=== PATIENT | male | born 1985 | race Caucasian/White ===

== ENCOUNTER 2017-08-14 16:47 | Inpatient (IN) | payer BC, OTHER ==
[~2017-08-14] VITALS: Ht 180.3 cm; Wt 85.7 kg
[2017-08-14 17:00] VITALS: BP 157/84
--- NOTE | 2017-08-14 17:45 | NUR ---
PRE ADMISSION 31 year old male from [facility], presents alert and oriented x4, noted calm and cooperative, soft speech. bp: 157/84, P: 94, t: 98.0, r: 16 o2 sat: 95%. Patient reports no food or drug allergies. Patient reports he is here to detox off of: heroin, verbalized " i want to get my life back" Patient was educated regarding unit policies with good verbal understanding. Patient denies any history of seizures. Dr. Juarez notified of new admission.
[2017-08-14] MEDS ORDERED: MIRALAX 17 GM POWD.PACK PO PRN (18:00)
[2017-08-14] MEDS ORDERED: MAGNESIUM HYDROXIDE 30 ML LIQUID UDC PO PRN (18:00)
[2017-08-14] MEDS ORDERED: MAG HYDROX/AL HYDROX/SIMETH 30 ML LIQUID UDC PO PRN (18:00)
[2017-08-14] MEDS ORDERED: DICYCLOMINE HCL 20 MG TABLET PO PRN (18:00)
[2017-08-14] MEDS ORDERED: LOPERAMIDE HCL 2 MG CAPSULE PO PRN ×2 (18:00)
[2017-08-14] MEDS ORDERED: ONDANSETRON ODT 4 MG TAB.RAPDIS SL PRN (18:00)
[2017-08-14] MEDS ORDERED: BUPRENORPHINE HCL 2 MG TAB.SUBL SL PRN (18:00)
[2017-08-14] MEDS ORDERED: IBUPROFEN 600 MG TABLET PO PRN (18:00)
[2017-08-14] MEDS ORDERED: ONDANSETRON 4 MG/2 ML VIAL IM PRN (18:00)
[2017-08-14] MEDS ORDERED: LORAZEPAM 1 MG TABLET PO PRN (18:00)
[2017-08-14] MEDS ORDERED: ACETAMINOPHEN 325 MG TABLET PO PRN (18:00)
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
[2017-08-14 18:11] LABS: *AMPHETAMINE, URINE NEGATIVE (NEGATIVE); *BARBITURATE, URINE NEGATIVE (NEGATIVE); *CANNABINOID, URINE POSITIVE (NEGATIVE); *COCCAINE, URINE NEGATIVE (NEGATIVE); *OPIATE, URINE POSITIVE (NEGATIVE); *PHENCYCLIDINE SCREEN,URINE NEGATIVE (NEGATIVE)
[2017-08-14] MEDS ORDERED: CYCL10TA9 PO (18:31)
--- NOTE | 2017-08-14 19:50 | NUR ---
START OF SHIFT Received report from day shift nurse. Pt is in his room watching TV. He is a 31 yo male admitted to [facility] today for opiate dependence. He is A&O x4 and ambulatory. NKA, full code status, and on a regular diet. He has a PMH of Hepatitis C, suicidal ideation 19 months ago, and PTSD. On admission he reported using heroin 1 gram per day and marijuana 1 gram per day. Last used both today. Pt reports "I feel warm". No other s/s of withdrawal at this time. He denies SI/HI. Fall precautions in place. Bed is down with call light in reach.
[2017-08-14 20:00] VITALS: BP 144/80
[2017-08-14 20:26] LABS: BASOPHILS # (AUTO) 0.1 K/uL (0.0-8.0); EOSINOPHILS # (AUTO) 0.4 K/uL (0.0-0.7); EOSINOPHILS % (AUTO) 3.5 % (0.0-7.0); HEMATOCRIT 46.4 % (40-50); HEMOGLOBIN 15.5 G/DL (14.0-18.0); LYMPHOCYTES # (AUTO) 3.5 K/UL (0.8-4.8); LYMPHOCYTES % (AUTO) 33.9 % (20.5-51.5); MEAN CORPUSCULAR HEMOGLOBIN 30.5 UUG (27.0-31.0); MEAN CORPUSCULAR HGB CONC 33 g/dL (32.0-37.0); MEAN CORPUSCULAR VOLUME 91.4 FL (82.0-92.0); MONOCYTES % (AUTO) 9.3 % (0.0-11.0); NEUTROPHILS # (AUTO) 5.3 K/UL (1.8-8.9); NEUTROPHILS % (AUTO) 52.3 % (38.5-71.5); PLATELET COUNT (AUTO) 360 K/UL (150-450); RED BLOOD CELL COUNT(AUTO) 5.07 MIL/UL (4.7-6.1); WHITE BLOOD COUNT (AUTO) 10.3 K/UL (4.0-11.2)
[2017-08-14 20:33] LABS: ALANINE AMINOTRANSFERASE 109 U/L (16-63); ALKALINE PHOSPHATASE 104 U/L (50-136); ASPARTATE AMINOTRANSFERASE 37 U/L (15-37); BILIRUBIN,TOTAL 0.4 mg/dL (0.2-1.0); CARBON DIOXIDE 28 mmol/L (21-32); CHLORIDE 106 mmol/L (98-107); CREATININE 1.3 mg/dL (0.6-1.3); GLUCOSE 84 mg/dL (74-106); MAGNESIUM 2.2 mg/dL (1.8-2.4); TOTAL PROTEIN, SERUM 7.5 g/dL (6.4-8.2); UREA NITROGEN, BLOOD 10 mg/dL (7-18)
[2017-08-14 20:35] LABS: ETHANOL < 3 MG/DL (0-0)
[2017-08-14] MEDS: CLONIDINE HCL 0.1 MG TABLET PO PRN (21:13)
[2017-08-14] MEDS: diphenhydrAMINE 50 MG CAPSULE PO PRN (21:13)
--- NOTE | 2017-08-14 21:14 | NUR ---
PRN Clonidine and Benadryl Pt reports feeling "warm", anxious, restless, and unable to fall asleep. COWS 4. B/P 144/80 and HR 83. PRN Clonidine and Benadryl administered.
--- NOTE | 2017-08-14 22:15 | NUR ---
PRN Clonidine and Benadryl reassessment PRN Clonidine and Benadryl effective. Pt is lying in bed resting with eyes closed. Respirations even and unlabored. Safety measures in place.
[2017-08-15] VITALS (7 sets, daily range): BP systolic 120–142; BP diastolic 74–84
--- NOTE | 2017-08-15 04:00 | NUR ---
0400 COWS deferred COWS ordered Q4HWA. Pt is lying in bed resting with eyes closed. Vital signs obtained. Safety measures in place.
[2017-08-15] MEDS: CLONIDINE HCL 0.1 MG TABLET PO PRN (05:55)
--- NOTE | 2017-08-15 05:56 | NUR ---
PRN Subutex, Clonidine, and Zofran Pt woke up and reports nausea, joint aches, chills, and anxiety. He verbalizes that he feels he is about to vomit. He has visible sweat on the forehead, restless legs, and goose bumps. COWS 15. PRN Subutex, Clonidine, and Zofran IM administered.
--- NOTE | 2017-08-15 06:56 | NUR ---
PRN Subutex, Clonidine, and Zofran reassessment PRN Subutex, Clonidine, and Zofran effective. Pt reports "I feel a lot better". He is lying in bed resting. COWS score reduced to 5.
--- NOTE | 2017-08-15 07:15 | NUR ---
END OF SHIFT Report provided to day shift nurse. Pt is lying in bed resting. He is a 31 yo male admitted to [facility] today for opiate dependence. He is A&O and ambulatory. NKA, full code status, and on a regular diet. He has a PMH of Hepatitis C, suicidal ideation 19 months ago, and PTSD. Upon admission he reported using heroin 1 gram per day and marijuana 1 gram per day. Last used both today. Pt was experiencing s/s of withdrawal PRN Clonidine and Benadryl administered before bed. He woke up with COWS score of 15. PRN Subutex, Clonidine, and Zofran administered. Pt reports symptoms improved. Last COWS 5. Fall precautions in place. Bed is down with call light in reach.
--- NOTE | 2017-08-15 07:16 | NUR ---
Start of Shift Notes: Received patient in his room. Alert and verbally responsive. Oriented x 4. Able to make needs known. Respirations even and unlabored. No SOB noted. Skin warm and dry to touch. Abdomen soft and non-distended. BS (+) in all 4 quadrants. No complains of N/V/D or constipation noted. Bladder non-distended. No dysuria. Voids independently. Ambulatory ad brie with steady gait. Patient is a 31 year old male admitted for opiate dependence who was placed on a 5-day Subutex taper as ordered. Prior to admission, patient was using 1 gram Shamir daily x 1-2 grams of Marijuana daily. Has past medical hx of Hep C, PTSD, and SA 19 months ago. NKA. FULL CODE. On a regular diet. On fall and seizure precautions. Educated patient on his current plan of care for the day and his medication regimen. Encouraged oral fluid intake and encouraged group participation to learn new skills to prevent relapse. Will continue to monitor.
[2017-08-15] MEDS: METHOCARBAMOL 750 MG TABLET PO PRN ×2 (08:43→21:27)
[2017-08-15] MEDS: BUPRENORPHINE HCL 2 MG TAB.SUBL SL SCH ×4 (08:43→21:15)
[2017-08-15] MEDS: MULTIVITAMINS,THERAPEUTIC TABLET PO SCH (08:43)
[2017-08-15] MEDS: HYDROXYZINE PAMOATE 25 MG CAPSULE PO PRN (08:43)
--- NOTE | 2017-08-15 08:43 | NUR ---
Robaxin 750mg/Bentyl 20 mg/Vistaril 25 mg PO given: Patient noted with complain of 6/10 generalized pain related to s/s of opaite withdrawal, abdominal cramps, moderate anxiety, and agitation. COWS 13. Medicated patient with scheduled Subutex 4mg SL, and PRN Robaxin, Bentyl and Vistaril as ordered. Will monitor for effectiveness.
[2017-08-15] MEDS ORDERED: TUBERCULIN,PURIF.PROT.DERIV. 5 TU/0.1 ML TEST ID ONE (09:00)
--- NOTE | 2017-08-15 09:43 | NUR ---
Re-assessment: Per patient, PRN Robaxin, Bentyl and Vistaril were effective in reducing muscle aches, abdominal cramps and anxiety. PL 2/10.
[2017-08-15] MEDS: GABAPENTIN 300 MG CAPSULE PO SCH ×2 (14:09→21:00)
--- NOTE | 2017-08-15 15:38 | NUR ---
Client was prompted by therapist to attend daily group sessions. Client stated that he would attend if was feeling well.
--- NOTE | 2017-08-15 19:37 | NUR ---
End of Shift Notes: Patient started on 5-day Subutex taper as ordered. No adverse reactions noted. VS monitored closely. No significant abnormalities noted. Withdrawal symptoms were closely monitored. Initial COWS 13, patient presented with myalgia, stomach cramps, anxiety, pupil dilation, restlessness, chills and hot flashes. Last COWS 7. Medicated patient with Robaxin 750mg PO, Bentyl 20mg PO and Vistaril 25 mg PO with help after 1 hour. Per patient, Subutex has been effective in reducing patient's withdrawal symptoms. Compliant with care and treatment. Unable to participate in group and activities due to his withdrawal symptoms. ALl needs met and attended. Will continue to monitor closely.
--- NOTE | 2017-08-15 19:50 | NUR ---
START OF SHIFT Received report from day shift nurse. Pt is lying in bed resting. He is a 31 yo male admitted to [facility] on 08/14 for opiate dependence. He is A&O x4 and ambulatory. NKA, full code status, and on a regular diet. He has a PMH of Hepatitis C, suicidal ideation 19 months ago, and PTSD. Upon admission he reported using heroin 1 gram per day and marijuana 1 gram per day. Pt reports anxiety, leg and arm aches, and is observed with restless legs. Pt denies SI/HI. Taper due tonight. Fall precautions in place. Bed is down with call light in reach.
--- NOTE | 2017-08-15 21:28 | NUR ---
PRN Robaxin administration Pt reports leg aches, arm aches, and muscle spasms. PRN Robaxin administered.
[2017-08-15] MEDS ORDERED: LORAZEPAM 1 MG TABLET PO PRN (22:00)
[2017-08-15] MEDS: diphenhydrAMINE 50 MG CAPSULE PO PRN (22:01)
--- NOTE | 2017-08-15 22:02 | NUR ---
PRN Ativan and Benadryl Pt reports feeling anxious, restless, and is unable to keep his legs still. PRN Ativan order extended by Dr. Juarez. PRN Ativan and Benadryl administered.
[2017-08-15] MEDS ORDERED: LORAZEPAM 1 MG TABLET ONE (22:10)
--- NOTE | 2017-08-15 22:28 | NUR ---
PRN Robaxin reassessment PRN Robaxin effective. Pt reports leg and arm aches are relieved. Muscle spasms are less frequent.
[2017-08-16] VITALS (7 sets, daily range): BP systolic 119–157; BP diastolic 66–93
--- NOTE | 2017-08-16 | NUR ---
0000 COWS deferred COWS ordered Q4HWA. Pt is lying in bed resting with eyes closed. Vital signs obtained. Safety measures in place.
--- NOTE | 2017-08-16 04:00 | NUR ---
0400 COWS deferred COWS ordered Q4HWA. Pt is lying in bed resting with eyes closed. Vital signs obtained. Safety measures in place.
[2017-08-16] MEDS: CLONIDINE HCL 0.1 MG TABLET PO PRN (06:05)
--- NOTE | 2017-08-16 06:05 | NUR ---
PRN Clonidine and Zofran Pt woke up and reported hot flashes, anxiety, and nausea. COWS score 10. PRN Clonidine and Zofran administered.
--- NOTE | 2017-08-16 07:05 | NUR ---
PRN Clonidine and Zofran reassessment PRN Clonidine and Zofran effective. Pt is lying in bed resting. He reports nausea is relieved and he feels more relaxed. COWS score 4.
--- NOTE | 2017-08-16 07:06 | NUR ---
END OF SHIFT Report provided to day shift nurse. Pt is lying in bed resting. He is a 31 yo male admitted to [facility] on 08/14 for opiate dependence. He is A&O x4 and ambulatory. NKA, full code status, and on a regular diet. He has a PMH of Hepatitis C, suicidal ideation 19 months ago, and PTSD. Upon admission he reported using heroin 1 gram per day and marijuana 1 gram per day. Pt showered this morning. PRN Ativan, Benadryl, Robaxin last night. PRN Clonidine and Zofran administered this morning. Last COWS 4. He drank 1000mL and slept for 6 hours. Fall precautions in place. Bed is down with call light in reach.
--- NOTE | 2017-08-16 07:30 | NUR ---
START OF SHIFT Pt is a 31 yr old male, AA&OX4. Pt was admitted on 08/14/17 for Opiate dependence and is on 5 day Subutex taper as ordered. medication carlos well. Received report from shift manager nurse. Pt received Ativan PRN, Robaxin PRN, Benadryl PRN, Clonidine PRN and Zofran PRN for s/s of w/d. Medication was effective. Last COWS score was 4 at 0703. Pt denies any anxiety or agitation. Skin is intact, warm and dry to touch. No tremors seen or felt. Pt denies any n/v. Encouraged pt to drink plenty of fluids. Safety precautions observed. Call light is within reach. Will continue to monitor.
[2017-08-16 08:06] LABS: HEPATITIS B SURFACE AG Negative (Negative)
[2017-08-16] MEDS: MULTIVITAMINS,THERAPEUTIC TABLET PO SCH (09:34)
[2017-08-16] MEDS: GABAPENTIN 300 MG CAPSULE PO SCH ×2 (09:34→14:57)
[2017-08-16] MEDS: BUPRENORPHINE HCL 2 MG TAB.SUBL SL SCH ×3 (09:34→21:01)
[2017-08-16] MEDS ORDERED: KETOROLAC TROMETHAMINE 30 MG INJ IM PRN (12:30)
[2017-08-16] MEDS: DICYCLOMINE HCL 20 MG TABLET PO SCH ×2 (14:57→20:59)
--- NOTE | 2017-08-16 19:13 | NUR ---
END OF SHIFT Pt is a 31 yr old male, AA&OX4. Pt was admitted on 08/14/17 for Opiate dependence and is on 5 day Subutex taper as ordered. medication carlos well. Pt has been cooperative with medication regimen and plan of care. Pt was encouraged to attend group but pt refused. Last COWS score was 5 at 1600. Pt is observed with anxiety but is able to cope with anxiety level. Skin is intact, warm and dry to touch. No tremors seen or felt. Pt denies any n/v. Encouraged pt to drink plenty of fluids. Safety precautions observed. Call light is within reach.
--- NOTE | 2017-08-16 19:50 | NUR ---
START OF SHIFT Received report from day shift nurse. Pt is in his room watching TV. He is a 31 yo male admitted to [facility] on 08/14 for opiate dependence. He is A&O x4 and ambulatory. NKA, full code status, and on a regular diet. He has a PMH of Hepatitis C, suicidal ideation 19 months ago, and PTSD. Upon admission he reported using heroin 1 gram per day and marijuana 1 gram per day. 5 day subutex taper started 08/15. Pt reports mild upset stomach and hot flashes. Taper due tonight. Fall precautions in place. Bed is down with call light in reach.
[2017-08-16] MEDS ORDERED: GABAPENTIN 300 MG CAPSULE PO SCH (21:00)
[2017-08-16] MEDS: CLONIDINE HCL 0.1 MG TABLET PO SCH (21:00)
[2017-08-16] MEDS: diphenhydrAMINE 50 MG CAPSULE PO PRN (21:01)
[2017-08-16] MEDS: METHOCARBAMOL 750 MG TABLET PO PRN (21:01)
--- NOTE | 2017-08-16 21:02 | NUR ---
PRN Robaxin and Benadryl Pt reports mild body aches and inability to sleep. PRN Robaxin and Benadryl administered.
[2017-08-17] VITALS: BP 127/66
--- NOTE | 2017-08-17 | NUR ---
0000 COWS deferred 0000 COWS deferred for sleep. Vital signs obtained.
[2017-08-17 04:00] VITALS: BP 134/77
--- NOTE | 2017-08-17 07:05 | NUR ---
START OF SHIFT Received report from day shift nurse. Pt is lying in bed. He is a 31 yo male admitted to [facility] on 08/14 for opiate dependence. He is A&O x4 and ambulatory. NKA, full code status, and on a regular diet. He has a PMH of Hepatitis C, suicidal ideation 19 months ago, and PTSD. Upon admission he reported using heroin 1 gram per day and marijuana 1 gram per day. 5 day Subutex taper started 08/15. PRN Benadryl and Robaxin administered. Last COWS 3. He drank 1180mL and slept for 8 hours. Fall precautions in place. Bed is down with call light in reach.
--- NOTE | 2017-08-17 07:30 | NUR ---
START OF SHIFT Pt is a 31 yr old male, AA&OX4. Pt was admitted on 08/14/17 for Opiate dependence and is on 5 day Subutex taper as ordered. medication carlos well. Received report from c d area supervisor nurse. Pt received Robaxin PRN and Benadryl PRN during the night. Medication was effective. Pt slept for 8 hrs. Last COWS score was 3 at 0400. Pt is c/o mild anxiety but is able to cope with anxiety level. Skin is intact, warm and dry to touch. No tremors seen or felt. Pt denies any n/v. Pt is c/o generalized pain 2/10. Encouraged pt to drink plenty of fluids. Safety precautions observed. Call light is within reach. Will continue to monitor.
[2017-08-17 08:00] VITALS: BP 111/64
[2017-08-17] MEDS: DICYCLOMINE HCL 20 MG TABLET PO SCH ×3 (08:46→20:14)
[2017-08-17] MEDS: GABAPENTIN 300 MG CAPSULE PO SCH ×4 (08:46→20:24)
[2017-08-17] MEDS: MULTIVITAMINS,THERAPEUTIC TABLET PO SCH (08:46)
[2017-08-17] MEDS ORDERED: BUPRENORPHINE HCL 2 MG TAB.SUBL SL SCH (09:00)
[2017-08-17] MEDS: CLONIDINE HCL 0.1 MG TABLET PO SCH ×2 (09:16→20:12)
[2017-08-17 12:00] VITALS: BP 145/70
[2017-08-17] MEDS: BUPRENORPHINE HCL 2 MG TAB.SUBL SL SCH ×2 (14:29→20:14)
[2017-08-17 16:00] VITALS: BP 134/63
--- NOTE | 2017-08-17 19:18 | NUR ---
END OF SHIFT Pt is a 31 yr old male, AA&OX4. Pt was admitted on 08/14/17 for Opiate dependence and is on 5 day Subutex taper as ordered. medication carlos well. Pt has been cooperative with medication regimen and plan of care. Pt was encouraged to attend group but pt refused. Last COWS score was 4 at 1600. Pt is observed with anxiety but is able to cope with anxiety level. Skin is intact, warm and dry to touch. No tremors seen or felt. Pt denies any n/v. Encouraged pt to drink plenty of fluids. Safety precautions observed. Call light is within reach.
--- NOTE | 2017-08-17 19:24 | NUR ---
PRN medication Patient with c/o headache pain 4 out of 10. Patient received Motrin 600 mg PO at 1924 . Effect pending
--- NOTE | 2017-08-17 19:30 | NUR ---
Start of Shift Patient is a 31 yo male admitted to [facility] on 08/14 for opiate dependence. He is on a 5 day Subutex taper started 08/15/17. He has NKA, is a full code, and on a regular diet. He has a PMH of Hepatitis C, suicide attempt 19 months ago, and PTSD. Patient denies current SI or HI. Mood appears stable. Last COWS 4 at 1600. Fall precautions in place. Bed is locked and in lowest position with 2 side rails up for safety, call light in reach. Received report from day shift nurse.
[2017-08-17 20:00] VITALS: BP 146/92
[2017-08-17] MEDS: BACLOFEN 10 MG TABLET PO SCH (20:14)
--- NOTE | 2017-08-17 20:24 | NUR ---
reassessemnt of patient Patient reassessed one hour after Motrin 600 mg PO given for headache, Good effect noted. Patient reports no further pain.
--- NOTE | 2017-08-17 21:00 | NUR ---
Medication refusal Patient refused Neurontin at 2100. States he does not like the way it makes him feel. Charge nurse notified.
[2017-08-17] MEDS: diphenhydrAMINE 50 MG CAPSULE PO PRN (21:01)
--- NOTE | 2017-08-17 21:01 | NUR ---
PRN medication Patient reports difficulty sleeping requested Benadryl. Patient received Benadryl 50 mg PO PRN at 1. Effect pending
--- NOTE | 2017-08-17 22:00 | NUR ---
Reassessment of patient Patient reassessed one hour after PRN Benadryl given for insomnia Good effect noted. Patient resting comfortably in bed eyes closed.
[2017-08-18] VITALS: BP 122/50
--- NOTE | 2017-08-18 | NUR ---
COWS deferred 0000 COWS deferred due to sleep
[2017-08-18 04:00] VITALS: BP 147/69
[2017-08-18] MEDS: HYDROXYZINE PAMOATE 25 MG CAPSULE PO PRN ×2 (05:29→20:05)
[2017-08-18] MEDS: METHOCARBAMOL 750 MG TABLET PO PRN (05:29)
--- NOTE | 2017-08-18 05:29 | NUR ---
PRN medication Patient up since 0400, took shower, and with complaints of feeling uncomfortable, with muscle tightness, and restlessness. Patient received PRN medication: Robaxin 750 mg PO with effect pending Vistaril 25 mg PO with effect pending
--- NOTE | 2017-08-18 06:40 | NUR ---
Reassessment of Patient Patient reassessed one hour after Robaxin 750 mg PO given for muscle pain/tightness, as well as Vistaril 25 mg PO for restlessness. Effectiveness noted.
--- NOTE | 2017-08-18 06:48 | NUR ---
End of Shift Patient is a 31 y.o. male admitted to [facility] on 08/14/17 for opiate detox. He is on a 5 day subutex taper started 08/15/17. He has NKA, is a full code, and on a regular diet. He has a PMH of Hepatitis C, suicide attempt 19 months ago, and PTSD. Patient denies current SI or HI. Mood appears stable. VS at 2000: BP 146/92, P 85, R 18, SPO2 98% on RA, T 97.3. COWS 5. Patient received Motrin 600 mg PO for headache, and Benadryl 50 mg for sleeplessness with good effect. Patient refused Neurontin at 2100 states he does not like the way it makes him feel. Patient VS at 0000 BP 122/50, P 69, R 16, SPO2 99% on RA, T 98.0. COWS deferred for sleep. VS at 0400 BP 147/69, P 71, R 16, T 98.1, SPO2 99% on RA, COWS 2. Patient woke up at 0400, took shower, and now has complaints of feeling uncomfortable, with muscle tightness, and restlessness. PRN: Robaxin 750 mg, and Vistaril 25 mg administered at 0529 with fair effect. slept total of 5 hours. Intake 1128 ml Output 3 voids, 1 BM. Fall precautions in place. Bed is locked and in lowest position with 2 side rails up for safety, call light in reach. report given to day shift nurse.
--- NOTE | 2017-08-18 07:30 | NUR ---
START OF SHIFT Pt is a 31 yr old male, AA&OX4. Pt was admitted on 08/14/17 for Opiate dependence and is on 5 day Subutex taper as ordered. medication carlos well. Received report from night coordinator nurse. Pt received Robaxin PRN, Vistaril PRN and Motrin PRN during the night for s/s of w/d. Medication was effective. Pt slept for 5 hrs. Last COWS score was 2 at 0400. Pt is c/o mild anxiety at this time but is able to cope with anxiety level. Skin is intact, warm and dry to touch. No tremors seen or felt. Pt denies any n/v. Pt denies any pain. Encouraged pt to drink plenty of fluids. Safety precautions observed. Call light is within reach. Will continue to monitor.
[2017-08-18 08:00] VITALS: BP 105/63
[2017-08-18] MEDS ORDERED: BUPRENORPHINE HCL 2 MG TAB.SUBL SL SCH (09:00)
[2017-08-18] MEDS: MULTIVITAMINS,THERAPEUTIC TABLET PO SCH (10:00)
[2017-08-18] MEDS: CLONIDINE HCL 0.1 MG TABLET PO SCH ×3 (10:00→20:05)
[2017-08-18] MEDS: DICYCLOMINE HCL 20 MG TABLET PO SCH ×3 (10:00→20:06)
[2017-08-18] MEDS: GABAPENTIN 300 MG CAPSULE PO SCH ×3 (10:00→20:06)
[2017-08-18] MEDS: BACLOFEN 10 MG TABLET PO SCH ×3 (10:00→20:05)
--- NOTE | 2017-08-18 10:00 | NUR ---
MEDICATION REFUSED Pt refused to take all medications scheduled at 0900 including Subutex 2mg SL. Pt was educated on the importance of medication regimen. Pt was able to verbalize understanding but continues to refuse. Dr. Juarez was made aware with NNO.
[2017-08-18 12:00] VITALS: BP 146/74
--- NOTE | 2017-08-18 14:18 | NUR ---
MEDICATION REFUSED Pt refused to take all medications scheduled at 1500. Pt was educated on the importance of medication regimen. Pt was able to verbalize understanding but continues to refuse. Dr. Juarez was made aware with NNO.
[2017-08-18 16:00] VITALS: BP 149/76
--- NOTE | 2017-08-18 19:07 | NUR ---
END OF SHIFT Pt is a 31 yr old male, AA&Ox4. Pt was admitted on 08/14/17 for Opiate dependence and was on Subutex taper. Pt refused to take Subutex and all medication during the day. MD was made aware with new order to discontinue Subutex taper. Pt is to be discharged tomorrow on 08/19/17. Last COWS score was 2 at 1600. Pt is observed with anxiety but is able to cope with anxiety level. Skin is intact, warm and dry to touch. No tremors seen or felt. Pt denies any n/v. Encouraged pt to drink plenty of fluids. Safety precautions observed. Call light is within reach.
[2017-08-18 20:00] VITALS: BP 146/74
--- NOTE | 2017-08-18 20:00 | NUR ---
START OF SHIFT NOTE RECEIVED REPORT FROM DAY SHIFT NURSE. PATIENT IS A 31 YEAR OLD MALE ADMITTED FOR OPIATE DEPENDENCE. PATIENT IS ON 4TH DAY OF HIS 5 DAY SUBUTEX TAPER. PATIENT REPORTS PMH OF HEP C +, PTSD, SUICIDE ATTEMPT 19 MONTHS AGO. UPON ADMISSION, PATIENT IS USING HEROIN (SMOKED) 1 GRAM DAILY FOR 10 MONTHS AND MARIJUANA (SMOKED) 1-2 GRAM DAILY FOR 21 YEARS. SKIN INTACT. PER DAY SHIFT NURSE, PATIENT HAS BEEN REFUSING HIS SUBUTEX, DR. VANEGAS DISCONTINUE TAPER AND IS MEDICALLY CLEARED TO BE DISCHARGE TOMORROW.RECEIVED PATIENT IN HIS ROOM, WATCHING TV. PATIENT STATES HES ANXIOUS BUT FEELS GOOD. NO N/V. APPETITE IS GOOD AND DRINKING FLUIDS WELL. ON FALL PRECAUTION. SAFETY MEASURES IN PLACE. CALL LIGHT IN REACH. WILL CONTINUE TO MONITOR
[2017-08-18] MEDS: diphenhydrAMINE 50 MG CAPSULE PO PRN (20:05)
--- NOTE | 2017-08-18 21:00 | NUR ---
REFUSED MEDS PATIENT REFUSED BENTYL AND NEURONTIN, EXPLAINED RISKS/BENEFITS. WILL CONTINUE TO MONITOR
--- NOTE | 2017-08-18 22:05 | NUR ---
PRN VISTARIL AND BENADRYL ADMINISTRATION PATIENT REPORTS ANXIETY AND REQUESTS FOR SLEEP AID. PRN BENADRYL AND VISTARIL GIVEN. WILL CONTINUE TO MONITOR.
--- NOTE | 2017-08-18 23:30 | NUR ---
VISTARIL/BENADRYL RE-ASSESSMENT PATIENT ASLEEP AT THIS TIME. RESPIRATION EVEN AND UNLABORED. SAFETY MEASURES IN PLACE. CALL LIGHT IN REACH. WILL CONTINUE TO MONITOR
--- NOTE | 2017-08-19 | NUR ---
COWS DEFERRED PATIENT SLEEPING. REFUSED VS COWS DEFERRED. RESPIRATION EVEN AND UNLABORED. SAFETY MEASURES IN PLACE. CALL LIGHT IN REACH. WILL CONTINUE TO MONITOR
--- NOTE | 2017-08-19 04:00 | NUR ---
COWS DEFERRED PATIENT SLEEPING. REFUSED VS COWS DEFERRED. RESPIRATION EVEN AND UNLABORED. SAFETY MEASURES IN PLACE. CALL LIGHT IN REACH. WILL CONTINUE TO MONITOR
--- NOTE | 2017-08-19 07:26 | NUR ---
END OF SHIFT NOTE PATIENT IS MEDICALLY CLEARED TO BE DISCHARGE TODAY. PATIENT SLEPT 5 HOURS. FLUID INTAKE 1,478 ML. VOIDED X 2 AND NO BM, PATIENT REFUSED BENTYL AND NEURONTIN. EXPLAINED RISKS/BENEFITS. PATIENT WAS GIVEN PRN BENADRYL AND VISTARIL, EFFECTIVE. ON FALL PRECAUTION. WILL CONTINUE TO MONITOR. NO S/I/HI DURING SHIFT. SAFETY MEASURES IN PLACE. CALL LIGHT IN REACH. WILL CONTINUE TO MONITOR.
--- NOTE | 2017-08-19 07:30 | NUR ---
Start of shift note: received pt from night stocker nurse. pt is in stable condition no s/s of pain or discomfort. pt is set to discharge today. [facility] Opiate/marijuana withdrawal/dependence. pt tolerated subutex doses well without A/R noted. pt's last cows 1 and slept for 5 hours. pt is set to discharge today. will assist pt in discharging.
[2017-08-19] MEDS: MULTIVITAMINS,THERAPEUTIC TABLET PO SCH (08:20)
[2017-08-19] MEDS: DICYCLOMINE HCL 20 MG TABLET PO SCH (08:20)
[2017-08-19] MEDS: CLONIDINE HCL 0.1 MG TABLET PO SCH (08:20)
[2017-08-19] MEDS: GABAPENTIN 300 MG CAPSULE PO SCH (08:20)
[2017-08-19] MEDS: BACLOFEN 10 MG TABLET PO SCH (08:20)
[2017-08-19 09:00] VITALS: BP 160/83
[2017-08-19] MEDS ORDERED: BUPRENORPHINE HCL 2 MG TAB.SUBL SL SCH (09:00)
--- NOTE | 2017-08-19 09:44 | NUR ---
discharge note: pt left the unit in stable condition, pt refused all scheduled medications, explained risk and benefits x3. pt teaching Administered and pt verbalized understanding. pt's V/S WNL. pt's personal belongings were returned, pt will be picked up by and transported home via own private car.
== END 2017-08-19 09:44 | disposition home or self-care (01) | DRG 895 ==
LOC: SRC 16:47
PROVIDERS: ADMIT Internal Medicine; ATTEND Internal Medicine
PROC: HZ2ZZZZ Detoxification Services for Substance Abuse Treatment (ICD-10-PCS; principal; 2017-08-14)
PROC: HZ51ZZZ Individual Psychotherapy for Substance Abuse Treatment, Behavioral (ICD-10-PCS; 2017-08-16)
DX: F11.23 Opioid dependence with withdrawal (principal); F33.2 Major depressive disorder, recurrent severe without psychotic features; I15.9 Secondary hypertension, unspecified; Z91.5 Personal history of self-harm; Z83.3 Family history of diabetes mellitus; Z81.1 Family history of alcohol abuse and dependence; Z81.3 Family history of other psychoactive substance abuse and dependence; F43.10 Post-traumatic stress disorder, unspecified; F12.10 Cannabis abuse, uncomplicated; B18.2 Chronic viral hepatitis C
CPT/HCPCS: 36415; 80307; 80349; 80361; 83735; 85025; 86580; 86592; 86705; 86803; 87340; 87806; A4663; G0480; J2405; Q0162; Q0163

== ENCOUNTER 2017-10-25 19:57 | Inpatient (IN) | payer BC, OTHER ==
[~2017-10-25] VITALS: Ht 180.3 cm; Wt 77.1 kg
[2017-10-25] MEDS ORDERED: MAGNESIUM HYDROXIDE 30 ML LIQUID UDC PO PRN (20:15)
[2017-10-25] MEDS ORDERED: MAG HYDROX/AL HYDROX/SIMETH 30 ML LIQUID UDC PO PRN (20:15)
[2017-10-25] MEDS ORDERED: ONDANSETRON 4 MG/2 ML VIAL IM PRN (20:15)
[2017-10-25] MEDS ORDERED: BUPRENORPHINE HCL 2 MG TAB.SUBL SL PRN (20:15)
[2017-10-25] MEDS ORDERED: LOPERAMIDE HCL 2 MG CAPSULE PO PRN ×2 (20:15)
[2017-10-25] MEDS ORDERED: ONDANSETRON ODT 4 MG TAB.RAPDIS SL PRN (20:15)
[2017-10-25] MEDS ORDERED: IBUPROFEN 600 MG TABLET PO PRN (20:15)
[2017-10-25] MEDS ORDERED: DICYCLOMINE HCL 20 MG TABLET PO PRN (20:15)
[2017-10-25] MEDS ORDERED: DOCUSATE SODIUM 250 MG CAPSULE PO PRN (20:15)
[2017-10-25] MEDS ORDERED: ACETAMINOPHEN 325 MG TABLET PO PRN (20:15)
[2017-10-25] MEDS ORDERED: MIRALAX 17 GM POWD.PACK PO PRN (20:15)
[2017-10-25 20:49] LABS: BASOPHILS # (AUTO) 0.1 K/uL (0.0-8.0); BASOPHILS % (AUTO) 0.7 % (0.0-2.0); EOSINOPHILS % (AUTO) 0.4 % (0.0-7.0); HEMATOCRIT 50.3 % (36.7-47.1); LYMPHOCYTES # (AUTO) 2.4 K/uL (20.0-40.0); LYMPHOCYTES % (AUTO) 24.9 % (20.5-51.5); MEAN CORPUSCULAR HEMOGLOBIN 31.3 uug (23.8-33.4); MEAN CORPUSCULAR HGB CONC 34 g/dL (32.5-36.3); MEAN CORPUSCULAR VOLUME 92.3 fL (73.0-96.2); MONOCYTES # (AUTO) 0.7 K/uL (2.0-10.0); MONOCYTES % (AUTO) 6.9 % (0.0-11.0); NEUTROPHILS # (AUTO) 6.5 K/uL (1.8-8.9); NEUTROPHILS % (AUTO) 67.1 % (38.5-71.5); PLATELET COUNT (AUTO) 279 K/uL (152-348); RED BLOOD CELL COUNT(AUTO) 5.45 MIL/uL (4.06-5.63); WHITE BLOOD COUNT (AUTO) 9.7 K/uL (3.6-10.2)
[2017-10-25 20:58] VITALS: BP 124/87
[2017-10-25 21:00] LABS: ALANINE AMINOTRANSFERASE 85 U/L (16-63); ALKALINE PHOSPHATASE 105 U/L (50-136); ASPARTATE AMINOTRANSFERASE 29 U/L (15-37); BILIRUBIN,TOTAL 0.6 mg/dL (0.2-1.0); CARBON DIOXIDE 24 mmol/L (21-32); CHLORIDE 105 mmol/L (98-107); CREATININE 1.6 mg/dL (0.6-1.3); GLUCOSE 124 mg/dL (74-106); MAGNESIUM 2.1 mg/dL (1.8-2.4); POTASSIUM 3.8 mmol/L (3.5-5.1); TOTAL PROTEIN, SERUM 8.1 g/dL (6.4-8.2); UREA NITROGEN, BLOOD 11 mg/dL (7-18)
--- NOTE | 2017-10-25 21:00 | NUR ---
Pre admission note Patient seen in intake office. Pt appears moderately intoxicated upon admission but in stable condition. V/S WNL. Policies on medication disposal explained to and understood by patient. No s/s of distress noted at this time. Respirations even and unlabored. Will continue to monitor. Will admit to unit.
[2017-10-25 21:02] LABS: ETHANOL < 3 MG/DL (0-0)
[2017-10-25 21:04] LABS: *AMPHETAMINE, URINE NEGATIVE (NEGATIVE); *BARBITURATE, URINE NEGATIVE (NEGATIVE); *CANNABINOID, URINE POSITIVE (NEGATIVE); *COCCAINE, URINE NEGATIVE (NEGATIVE); *OPIATE, URINE POSITIVE (NEGATIVE); *PHENCYCLIDINE SCREEN,URINE NEGATIVE (NEGATIVE)
--- NOTE | 2017-10-25 21:10 | NUR ---
Admission note Pt is a 32 yo male, A+Ox4, presenting to [facility] for Opiate dependence. Pt has NKA, is on Full code status, and on Regular diet. Pt is 5'11" in height and 170 LBS in weight. Pt has medical HX of S/I with attempt in 12/2015, Facial reconstruction, tongue SX, Trach/GT, and Hep C+. Pt has family HX of Carpal tunnel- Mother, Heart condition- Father, and Substance and alcohol abuse- Mother, Father, 2 sisters. Pt has a primary care provider named Freddy Mustafa. Pt has been using Heroin IV for 18 years (2 months currently), has reached a level of 1.5gm-3gm daily, and last dose was 0.5gm on 10-25-17 @1700. Pt has been taking [place] 5/325 PO for 2 years (2 months currently), has reached a level of 2 tabs when Heroin not available, and last dose was 2 tabs on 10-22-17. Pt has used Suboxone 1 time only on 10-25-17 @0900. Pt is not taking any home medications. Pt has HX of previous Detox/Rehab @ [facility] for 5 days in 07/2017 and continued sobriety for a total of 15 days. This was the patients last time sober. Pt has quit smoking cigarettes about 3-4 years ago. Pt appears moderately intoxicated upon admission but in stable condition. V/S WNL. No s/s of distress noted at this time. Respirations even and unlabored. Will continue to monitor.
[2017-10-25] MEDS: CLONIDINE HCL 0.1 MG TABLET PO PRN (22:52)
[2017-10-25] MEDS: diphenhydrAMINE 50 MG CAPSULE PO PRN (22:52)
--- NOTE | 2017-10-25 22:52 | NUR ---
PRN Clonidine and Benadryl Pt c/o Anxiety and inability to sleep and requested for PRN Benadryl and Clonidine. medication Addendum: 10/26/17 at 0128 by GENNARO PRECIADO LVN ... medications given and tolerated well. Will reassess within 1 HR. Will continue to monitor.
[2017-10-25] MEDS ORDERED: diphenhydrAMINE 50 MG CAPSULE ONE (23:07)
[2017-10-25] MEDS ORDERED: CLONIDINE HCL 0.1 MG TABLET ONE (23:07)
--- NOTE | 2017-10-25 23:50 | NUR ---
PRN Clonidine and Benadryl Reassessment Medications effective. Pt is resting well in bed. No s/s of ASE/distress noted at this time. Respirations even and unlabored. Will continue to monitor.
[2017-10-26 00:10] VITALS: BP 127/73
--- NOTE | 2017-10-26 03:36 | NUR ---
PRN Subutex 4mg Pt c/o opiate withdrawal and noted with COWS: 13. PRN Subutex given and tolerated well. Will reassess within 30 minutes. Will continue to monitor.
[2017-10-26] MEDS ORDERED: BUPRENORPHINE HCL 2 MG TAB.SUBL SL ONE (03:48)
--- NOTE | 2017-10-26 03:48 | NUR ---
PRN Vistaril Pt c/o anxiety and requested for PRN Vistaril. Medication given and tolerated well. Will reassess within 1 HR. Will continue to monitor
[2017-10-26] MEDS: HYDROXYZINE PAMOATE 25 MG CAPSULE PO PRN (03:49)
[2017-10-26] MEDS ORDERED: HYDROXYZINE PAMOATE 25 MG CAPSULE ONE (04:05)
[2017-10-26 04:06] VITALS: BP 122/77
--- NOTE | 2017-10-26 04:06 | NUR ---
PRN Subutex 4mg and Vistaril Reassessment Medications effective. Pt is resting well in bed with COWS: 6. No s/s of ASE/distress noted at this time. Respirations even and unlabored. Will continue to monitor.
[2017-10-26] MEDS: CLONIDINE HCL 0.1 MG TABLET PO PRN ×3 (06:51→20:50)
--- NOTE | 2017-10-26 06:58 | NUR ---
PRN Clonidine Pt c/o anxiety and requested for PRN Clonidine. Medication given and tolerated well. Will reassess within 1 HR. Will continue to monitor.
--- NOTE | 2017-10-26 07:00 | NUR ---
End of shift note Pt is a 32 yo male, A+Ox4, presenting to [facility] for Opiate dependence. Pt has NKA, is on Full code status, and on Regular diet. Pt has HX of S/I with attempt in 12/2015, Facial reconstruction, tongue SX, Trach/GT, and Hep C+. Pt is on fall precautions. Pt is on 5 day Subutex taper to start today. Pt was given PRN Clonidine and Benadryl @2252 and PRN Subutex and Vistaril @0336 and PRN Clonidine @0658. Pt slept for a total of 5 HRS. Last COWS: 6 @0400. No s/s of distress noted at this time. Respirations even and unlabored. Will endorse today shift nurse.
[2017-10-26] MEDS ORDERED: CLONIDINE HCL 0.1 MG TABLET ONE (07:04)
--- NOTE | 2017-10-26 07:55 | NUR ---
START OF SHIFT: RECEIVED PT A/O X 4. HE IS FIDGETY AND RESTLESS. HE PRESENTS WITH ANXIOUS MOOD AND CONGRUENT AFFECT. HE REPORTS ANXIETY,SEVERE BODY ACHES,SWEATS,CHILLS AND STATES HE DID NOT SLEEP WELL LAST NIGHT. PRN ROBAXIN GIVEN WITH SCHEDULED SUBUTEX FOR BODY ACHES. ENCOURAGED INCREASED FLUIDS AND REST TODAY. PPD PLANTED TO LFA. WILL CONTINUE TO MONITOR AND MANAGE S/S OF W/D.
[2017-10-26 08:00] VITALS: BP 116/78
[2017-10-26] MEDS: METHOCARBAMOL 750 MG TABLET PO PRN (08:30)
[2017-10-26] MEDS ORDERED: TUBERCULIN,PURIF.PROT.DERIV. 5 TU/0.1 ML TEST ID ONE (09:00)
[2017-10-26] MEDS ORDERED: BUPRENORPHINE HCL 2 MG TAB.SUBL SL SCH (09:00)
[2017-10-26] MEDS: LORAZEPAM 1 MG TABLET PO PRN ×2 (09:51→17:35)
--- NOTE | 2017-10-26 09:55 | NUR ---
PRN ATIVAN 2MG PO GIVEN FOR REPORTED ANXIETY. PT IS AGITATED AND FIDGETY. WILL MONITOR EFFECTIVENESS OF PRN MED. PRN ROBAXIN EFFECTIVE FOR MUSCLE ACHES.WILL CONTINUE TO MONITOR AND OFFER SUPPORT.
--- NOTE | 2017-10-26 10:55 | NUR ---
PRN ATIVAN EFFECTIVE. PT STATES HE FEELS BETTER.HE IS LESS ANXIOUS AND AGITATED.
[2017-10-26] MEDS ORDERED: KETOROLAC TROMETHAMINE 30 MG INJ IM PRN (11:30)
[2017-10-26 12:00] VITALS: BP 105/66
[2017-10-26] MEDS: BUPRENORPHINE HCL 2 MG TAB.SUBL SL SCH ×3 (12:25→20:50)
[2017-10-26 16:00] VITALS: BP 112/75
--- NOTE | 2017-10-26 16:16 | NUR ---
Therapist prompted client about group times. Client stated he wants to rest today.
--- NOTE | 2017-10-26 17:44 | NUR ---
PT BECAME EXTREMELY ANXIOUS AND AGITATED. PRN ATIVAN PO GIVEN TO MANAGE ANXIETY AND AGITATION. WILL MONITOR EFFECTIVENESS.
--- NOTE | 2017-10-26 18:45 | NUR ---
PT STATES ATIVAN WAS EFFECTIVE AND HE FEELS MUCH BETTER. HE STATES HE FEELS SAD BUT DENIES S/I AND H/I.OFFERED SUPPORT.WILL CONTINUE TO MONITOR
--- NOTE | 2017-10-26 18:54 | NUR ---
END OF SHIFT: PT STARTED SUBUTEX TAPER THIS AM. HE REPORTED SWEATS,CHILLS,ANXIETY AND WAS VERY FIDGETY. SUBUTEX WAS ONLY MILDLY EFFECTIVE.HE BECAME AGITATED AND RESTLESS. ATIVAN PRN PO GIVEN X 2 AND EFFECTIVE TO ASSIST IN MANAGING ANXIETY AND AGITATION.PPD PLANTED TO LFA. HE WAS COMPLIANT WITH REST AND INCREASED FLUIDS TODAY. HE EXPRESSED FEELING SAD BUT DENIES S/I AND H/I. WILL ENDORSE TO SOLDER TECHNICIAN NURSE TO FOLLOW UP WITH PSYCH. . WILL PASS SHIFT REPORT TO ONCOMING NIGHT NURSE.
--- NOTE | 2017-10-26 19:15 | NUR ---
Start of shift note Pt is a 32 yo male, A+Ox4, presenting to [facility] for Opiate dependence. Pt has NKA, is on Full code status, and on Regular diet. Pt has HX of S/I with attempt in 12/2015, Facial reconstruction, tongue SX, Trach/GT, and Hep C+. Pt is on fall precautions. Pt is on 5 day Subutex taper, tolerated well. No s/s of distress noted at this time. Respirations even and unlabored. Will continue to monitor.
[2017-10-26 20:10] VITALS: BP 127/83
[2017-10-26] MEDS: diphenhydrAMINE 50 MG CAPSULE PO PRN (20:50)
--- NOTE | 2017-10-26 20:50 | NUR ---
PRN Clonidine and Benadryl Pt c/o Anxiety and inability to sleep and requested for PRN Benadryl and Clonidine. Medications given and tolerated well. Will reassess within 1 HR. Will continue to monitor.
[2017-10-27 00:18] VITALS: BP 124/73
[2017-10-27 04:15] VITALS: BP 133/87
[2017-10-27] MEDS: LORAZEPAM 1 MG TABLET PO PRN ×2 (04:16→08:33)
--- NOTE | 2017-10-27 04:20 | NUR ---
PRN Ativan 2mg Pt c/o anxiety/agitation and requested for PRN Ativan 2mg. Medication given and tolerated well. Will reassess within 1 HR. Will continue to monitor.
--- NOTE | 2017-10-27 05:15 | NUR ---
PRN Ativan 2mg Reassessment Medication effective. Pt is resting well in bed. No s/s of distress noted at this time. Respirations even and unlabored. Will continue to monitor.
--- NOTE | 2017-10-27 07:00 | NUR ---
End of shift note Pt is a 32 yo male, A+Ox4, presenting to [facility] for Opiate dependence. Pt has NKA, is on Full code status, and on Regular diet. Pt has HX of S/I with attempt in 12/2015, Facial reconstruction, tongue SX, Trach/GT, and Hep C+. Pt is on fall precautions. Pt is on 5 day Subutex taper to start today. Pt was given PRN Clonidine and Benadryl @2049 and PRN Ativan 2mg @0. Pt slept for a total of 9 HRS. Last COWS: 7 @0400. No s/s of distress noted at this time. Respirations even and unlabored. Will endorse today shift nurse.
--- NOTE | 2017-10-27 07:48 | NUR ---
START OF SHIFT RECEIVED PT A/O X4, RESPIRATIONS EVEN AND UNLABORED. PT REPORTS HAVING HOT FLASHES, GENERALIZED BODY ACHES, AND ANXIETY. DENIES NAUSEA AND CHILLS. ENCOURAGED PT TO CONSUME MORE FLUIDS TO FACILITATE IN DETOX PROCESS. SIDE RAILS UP X2, BED IN LOWEST POSITION. CALL LIGHT WITHIN REACH. WILL CONTINUE TO MONITOR AND PROVIDE SUPPORT. Addendum: 10/27/17 at 0758 by TYLER TURNER RN FALL PRECAUTIONS TAKEN.
[2017-10-27 08:00] VITALS: BP 118/68
[2017-10-27] MEDS: BUPRENORPHINE HCL 2 MG TAB.SUBL SL SCH ×3 (08:27→20:23)
[2017-10-27] MEDS: CLONIDINE HCL 0.1 MG TABLET PO PRN ×2 (08:27→14:48)
[2017-10-27] MEDS: METHOCARBAMOL 750 MG TABLET PO PRN (08:32)
--- NOTE | 2017-10-27 08:35 | NUR ---
PRN PT C/O OF BODY ACHES, HOT FLASHES, INCREASED S/S OF W/D. PT ALSO REPORTED INCREASED ANXIETY SINCE WAKING UP. ATIVAN 2 MG PO PRN, ROBAXIN 750 MG PO PRN, AND CLONIDINE 0.1 MG PO PRN WAS GIVEN. WILL CONTINUE TO MONITOR AND PROVIDE SUPPORT.
[2017-10-27] MEDS ORDERED: BUPRENORPHINE HCL 2 MG TAB.SUBL SL SCH ×2 (09:00→15:00)
--- NOTE | 2017-10-27 09:35 | NUR ---
REASSESSMENT PT REPORTED MEDICATIONS WERE EFFECTIVE IN REDUCING S/S OF W/D, INCLUDING BODY ACHES, AND HOT FLASHES. ALL SAFETY PRECAUTIONS TAKEN. WILL CONTINUE TO MONITOR AND PROVIDE SUPPORT.
[2017-10-27] MEDS ORDERED: LORAZEPAM 1 MG TABLET PO PRN (11:00)
[2017-10-27] MEDS ORDERED: LORAZEPAM 1 MG TABLET PO ONE (11:00)
[2017-10-27 12:00] VITALS: BP 108/72
[2017-10-27] MEDS: ESCITALOPRAM OXALATE 10 MG TABLET PO SCH (12:50)
[2017-10-27] MEDS: BACLOFEN 10 MG TABLET PO SCH ×2 (14:41→20:23)
--- NOTE | 2017-10-27 14:57 | NUR ---
PRN PT C/O OF INCREASED S/S OF W/D. ADMINISTERED CLONIDINE 0.1 MG PO PRN. ALL SAFETY MEASURES IN PLACE. WILL CONTINUE TO MONITOR AND PROVIDE SUPPORT.
[2017-10-27 16:00] VITALS: BP 118/72
--- NOTE | 2017-10-27 17:54 | NUR ---
REASSESSMENT PT REPORTED S/S OF W/D DECREASED WITH CLONIDINE AND MED WAS EFFECTIVE. ALL SAFETY MEASURES IN PLACE. WILL CONTINUE TO MONITOR AND PROVIDE SUPPORT.
--- NOTE | 2017-10-27 19:30 | NUR ---
END OF SHIFT PT IS A/O X4, RESPIRATIONS EVEN AND UNLABORED. PT REPORTED HAVING HOT FLASHES, GENERALIZED BODY ACHES, AND HIGH ANXIETY. DENIES NAUSEA AND SOB. PT APPEARED TO BE REALLY DEPRESSED, DR. BREWER NOTIFIED; LEXAPRO ORDERED AND GIVEN. ATIVAN X1 WAS ORDERED AND GIVEN DURING SHIFT; PT VERBALIZED THE MED HELPED SIGNIFICANTLY WITH HIS S/S OF W/D. LAST COWS 7. PT IS AT ON SUBUTEX TAPER. ENCOURAGED PT TO CONSUME MORE FLUIDS TO FACILITATE IN DETOX PROCESS. SIDE RAILS UP X2, BED IN LOWEST POSITION. CALL LIGHT WITHIN REACH. ALL SAFETY PRECAUTIONS TAKEN. WILL GIVE ALL PERTINENT DATA AND ENDORSEMENT TO LOG BRANDER.
[2017-10-27 20:00] VITALS: BP 124/80
--- NOTE | 2017-10-27 20:00 | NUR ---
Start of Shift Pt is a 32 year old male admitted for Opiate dependence, placed on 5 day Subutex taper. Pt reported use of Heroin IV 1.5g 3g/daily, [place] 5/325 and Suboxone use 1 time on 10/25/2017. PMH: SI with attempt 12/2015, facial reconstruction, tongue sx, trach/GI and Hep C. NKA, regular diet, fall precautions and full code. Upon assessment, pt presents with a depressed mood, reports feeling anxious at the same time, chills and hot/cold flushes, skin is flushed with body aches, tremors visible, respiration even/unlabored, denies SOB/chest pain, denies n/v/d, medications due. Safety measures in place, call light within reach, side rails up x2, bed locked and in low position, will continue to monitor.
[2017-10-27] MEDS: CLONIDINE HCL 0.1 MG TABLET PO SCH (20:23)
[2017-10-27] MEDS: diphenhydrAMINE 50 MG CAPSULE PO PRN (22:57)
--- NOTE | 2017-10-27 22:57 | NUR ---
PRN Administration Pt requests sleep aid. Benadryl 50mg PRN administered. Safety measures in place, will continue to monitor.
--- NOTE | 2017-10-27 23:57 | NUR ---
PRN Reassessment Upon reassessment, pt is resting eyes closed, with respirations even/unlabored. Safety measures in place, will continue to monitor.
[2017-10-28] VITALS: BP 137/83
--- NOTE | 2017-10-28 | NUR ---
COWS deferred d/t pt sleeping, to assess while pt is awake as ordered. BP 137/83, pulse 86, resp 17, Spo2 97% room air, temp 98.2, no pain Safety measures in place, will continue to monitor.
[2017-10-28 02:10] LABS: HEPATITIS B SURFACE AG Negative (Negative)
[2017-10-28 04:00] VITALS: BP 132/75
--- NOTE | 2017-10-28 04:00 | NUR ---
COWS deferred d/t pt sleeping, to assess while pt is awake as ordered. BP 132/75, pulse 82, resp 17, Spo2 98% room air, temp 98.1, no pain Safety measures in place, will continue to monitor.
--- NOTE | 2017-10-28 07:08 | NUR ---
End of Shift Pt is a 32 year old male admitted for Opiate dependence, placed on 5 day Subutex taper. Pt reported use of Heroin IV 1.5g 3g/daily, [place] 5/325 and Suboxone use 1 time on 10/25/2017. PMH: SI with attempt 12/2015, facial reconstruction, tongue sx, trach/GI and Hep C. NKA, regular diet, fall precautions and full code. During shift, pt presented with a depressed mood, reported feeling anxious at the same time, chills and hot/cold flushes, skin is flushed with body aches, tremors visible scheduled taper medications administered, COWS 9. Benadryl 50mg PRN administered for sleep. Pt slept for 7 hours, intake of 1478 ml PO, voids x3 and stool x0. Safety measures in place, call light within reach, side rails up x2, bed locked and in low position, Endorsed to day shift nurse.
--- NOTE | 2017-10-28 07:35 | NUR ---
START OF SHIFT RECEIVED PT A/O X4, RESPIRATIONS EVEN AND UNLABORED. PT REPORTS HAVING HOT FLASHES, ANXIETY AND NAUSEA. DENIES SOB. PT STATED, "I FEEL BETTER THIS MORNING COMPARED TO YESTERDAY." ENCOURAGED PT TO CONSUME MORE FLUIDS TO FACILITATE IN DETOX PROCESS. SIDE RAILS UP X2, BED IN LOWEST POSITION. CALL LIGHT WITHIN REACH. ALL SAFETY PRECAUTIONS TAKEN. WILL CONTINUE TO MONITOR AND PROVIDE SUPPORT.
[2017-10-28 08:00] VITALS: BP 118/79
[2017-10-28] MEDS: ESCITALOPRAM OXALATE 10 MG TABLET PO SCH (08:41)
[2017-10-28] MEDS: BACLOFEN 10 MG TABLET PO SCH ×3 (08:41→20:23)
--- NOTE | 2017-10-28 08:41 | NUR ---
PRN PT C/O NAUSEA AND ZOFRAN 4 MG SL PRN WAS GIVEN. WILL CONTINUE TO MONITOR FOR EFFECTIVENESS.
[2017-10-28] MEDS: CLONIDINE HCL 0.1 MG TABLET PO SCH ×3 (08:42→20:23)
[2017-10-28] MEDS ORDERED: BUPRENORPHINE HCL 2 MG TAB.SUBL SL SCH ×2 (09:00)
[2017-10-28 09:08] LABS: BILIRUBIN,DIRECT 0.2 mg/dL (0.0-0.2); BILIRUBIN,TOTAL 0.8 mg/dL (0.2-1.0); CREATININE 1.6 mg/dL (0.6-1.3); POTASSIUM 4.2 mmol/L (3.5-5.1)
--- NOTE | 2017-10-28 09:41 | NUR ---
REASSESSMENT PT REPORTED ZOFRAN WAS EFFECTIVE FOR HIS NAUSEA. WILL CONTINUE TO MONITOR AND PROVIDE SUPPORT.
[2017-10-28 12:00] VITALS: BP 132/83
--- NOTE | 2017-10-28 12:05 | NUR ---
PRN PT C/O OF HIGH ANXIETY, PT APPEARED TO BE ANXIOUS, RESTLESS, WITH FACIAL FLUSHING. CLONIDINE 0.1 MG PO PRN GIVEN. WILL CONTINUE TO MONITOR.
[2017-10-28] MEDS: CLONIDINE HCL 0.1 MG TABLET PO PRN (12:12)
--- NOTE | 2017-10-28 13:05 | NUR ---
REASSESSMENT PT REPORTED MEDICATION WAS PARTIALLY EFFECTIVE FOR ANXIETY UPON REASSESSMENT. WILL CONTINUE TO MONITOR.
[2017-10-28] MEDS: HYDROXYZINE PAMOATE 25 MG CAPSULE PO PRN (13:10)
--- NOTE | 2017-10-28 13:10 | NUR ---
PRN VISTARIL 25 MG PO PRN GIVEN FOR ANXIETY. WILL CONTINUE TO MONITOR FOR EFFECTIVENESS.
--- NOTE | 2017-10-28 14:10 | NUR ---
REASSESSMENT PT REPORTS MEDICATION WAS EFFECTIVE. ALL SAFETY MEASURES IN PLACE. WILL CONTINUE TO MONITOR FOR EFFECTIVENESS.
--- NOTE | 2017-10-28 14:59 | NUR ---
Therapist prompted client about group times. Client stated he will attend all groups today.
[2017-10-28] MEDS: DICYCLOMINE HCL 20 MG TABLET PO SCH ×2 (15:00→20:24)
[2017-10-28] MEDS: BUPRENORPHINE HCL 2 MG TAB.SUBL SL SCH ×2 (15:12→20:22)
[2017-10-28 16:00] VITALS: BP 129/75
--- NOTE | 2017-10-28 19:03 | NUR ---
END OF SHIFT PT IS A 32 Y/O M ADMITTED FOR OPIATE DEPENDENCE. PT IS A/O X4, RESPIRATIONS EVEN AND UNLABORED. PT REPORTS HAVING HOT FLASHES, ANXIETY AND NAUSEA. DENIES SOB. AT 1205 PT C/O EXTREME ANXIETY AND INCREASED S/S OF W/D, APPEARED HIGHLY DISTRESSED WITH FACIAL FLUSHING AND RESTLESSNESS; CLONIDINE AND VISATRIL GIVEN ON SHIFT AND PT REPORTED EFFECTIVENESS. PT REFUSED SCHEDULED BENTYL MEDICATION. LAST COWS 6 AT 1600. ENCOURAGED PT TO CONSUME MORE FLUIDS TO FACILITATE IN DETOX PROCESS. SIDE RAILS UP X2, BED IN LOWEST POSITION. CALL LIGHT WITHIN REACH. ALL SAFETY PRECAUTION MEASURES IN PLACE. WILL GIVE ALL PERTINENT DATA AND ENDORSEMENT TO WOODWORKING BENCH CARPENTER NURSE.
[2017-10-28 20:00] VITALS: BP 111/82
--- NOTE | 2017-10-28 20:00 | NUR ---
Start of Shift Pt is a 32 year old male admitted for Opiate dependence, placed on 5 day Subutex taper. Pt reported use of Heroin IV 1.5g 3g/daily, [place] 5/325 and Suboxone use 1 time on 10/25/2017. PMH: SI with attempt 12/2015, facial reconstruction, tongue sx, trach/GI and Hep C. NKA, regular diet, fall precautions and full code. Upon assessment, pt presents with a depressed mood, reports hot/cold flushes, skin is flushed with body aches, tremors visible, respiration even/unlabored, denies SOB/chest pain, denies n/v/d, medications due. Safety measures in place, call light within reach, side rails up x2, bed locked and in low position, will continue to monitor.
[2017-10-28] MEDS: diphenhydrAMINE 50 MG CAPSULE PO PRN (23:30)
--- NOTE | 2017-10-28 23:30 | NUR ---
PRN Administration Pt requests sleep aid. Benadryl 50mg PRN administered. Safety measures in place, will continue to monitor.
[2017-10-29] VITALS: BP 137/76
--- NOTE | 2017-10-29 | NUR ---
COWS deferred d/t pt sleeping, to assess while pt is awake as ordered. BP 137/76, pulse 64, resp 18, spo2 98% room air, temp 98.[address], will continue to monitor.
--- NOTE | 2017-10-29 00:30 | NUR ---
PRN Reassessment Upon reassessment, pt is in bed, sleeping, eyes closed with respirations even/unlabored. Safety measures in place, will continue to monitor.
[2017-10-29 04:00] VITALS: BP 122/75
--- NOTE | 2017-10-29 04:00 | NUR ---
COWS deferred d/t pt sleeping, to assess while pt is awake as ordered. BP 122/75, pulse 68, resp 16, spo2 99% room air, temp 98.[address], will continue to monitor.
--- NOTE | 2017-10-29 07:00 | NUR ---
End of Shift Pt is a 32 year old male admitted for Opiate dependence, placed on 5 day Subutex taper. Pt reported use of Heroin IV 1.5g 3g/daily, [place] 5/325 and Suboxone use 1 time on 10/25/2017. PMH: SI with attempt 12/2015, facial reconstruction, tongue sx, trach/GI and Hep C. NKA, regular diet, fall precautions and full code. During shift, pt presented with a depressed mood, reported hot/cold flushes, skin flushed with body aches, tremors visible scheduled taper medications administered, COWS 7. Benadryl 50mg PRN administered for sleep. Pt slept for 6 hours, intake of 523ml PO, voids x1 and stool x1. Safety measures in place, call light within reach, side rails up x2, bed locked and in low position. Endorsed to day shift nurse.
--- NOTE | 2017-10-29 07:30 | NUR ---
START OF SHIFT Pt 32 y/o male admitted for opiate dependence. Pt received in room on bed awake watching television. Pt alert and oriented to name, place, and time. Perrla. Skin warm and slightly moist to touch. Respirations even and unlabored. Bilateral hand tremors noted slightly. Pt appears slightly anxious this morning. It was reported that pt slept for 6 hours last night. Bed on lowest position with side rails x2 up for safety. Call light within reach. No distress noted at this time.
[2017-10-29 08:00] VITALS: BP 116/71
[2017-10-29] MEDS: DICYCLOMINE HCL 20 MG TABLET PO SCH ×3 (08:26→20:08)
[2017-10-29] MEDS: BACLOFEN 10 MG TABLET PO SCH ×3 (08:26→20:07)
[2017-10-29] MEDS: BUPRENORPHINE HCL 2 MG TAB.SUBL SL SCH ×3 (08:26→20:07)
[2017-10-29] MEDS: CLONIDINE HCL 0.1 MG TABLET PO SCH ×3 (08:26→20:07)
[2017-10-29] MEDS: ESCITALOPRAM OXALATE 10 MG TABLET PO SCH (08:26)
[2017-10-29] MEDS ORDERED: BUPRENORPHINE HCL 2 MG TAB.SUBL SL SCH (09:00)
--- NOTE | 2017-10-29 10:29 | NUR ---
Therapist prompted client about group times. Client stated he will attend all groups today.
[2017-10-29 12:00] VITALS: BP 137/82
[2017-10-29 16:00] VITALS: BP 135/89
--- NOTE | 2017-10-29 18:51 | NUR ---
END OF SHIFT Pt 32 y/o male admitted for opiate dependence. Pt alert and oriented to name, place, and time. Perrla. Skin warm and slightly moist touch. Respirations even and unlabored. Pt with bilateral hand tremors noted slightly. Pt observed mostly isolative to room throughout the day. Pt attended group activity. Pt was seen by MD today. Pt medication compliant and tolerated well. No ASE noted. Bed on lowest position with side rails x2 up for safety. Call light within reach. No distress noted at this time.
[2017-10-29 20:00] VITALS: BP 138/78
--- NOTE | 2017-10-29 20:00 | NUR ---
Start of Shift Pt is a 32 year old male admitted for Opiate dependence, placed on 5 day Subutex taper. Pt reported use of Heroin IV 1.5g 3g/daily, [place] 5/325 and Suboxone use 1 time on 10/25/2017. PMH: SI with attempt 12/2015, facial reconstruction, tongue sx, trach/GI and Hep C. NKA, regular diet, fall precautions and full code. Upon assessment, pt reports feeling mildly anxious, reports mild muscle aches, skin is flushed, respiration even/unlabored, denies SOB/chest pain, denies n/v/d, medications due. Safety measures in place, call light within reach, side rails up x2, bed locked and in low position, will continue to monitor.
[2017-10-29] MEDS: diphenhydrAMINE 50 MG CAPSULE PO PRN (23:17)
--- NOTE | 2017-10-29 23:17 | NUR ---
PRN Administration Pt requests sleep aid. Benadryl 50mg PRN administered. Safety measures in place, will continue to monitor.
--- NOTE | 2017-10-30 | NUR ---
COWS deferred d/t pt sleeping, to assess while pt is awake as ordered. Pt refused to be woken up for 0000 VS Safety measures in place, will continue to monitor.
--- NOTE | 2017-10-30 00:17 | NUR ---
PRN Reassessment Upon reassessment, pt is in bed, sleeping, eyes closed with respirations even/unlabored. Safety measures in place, will continue to monitor.
--- NOTE | 2017-10-30 04:00 | NUR ---
COWS deferred d/t pt sleeping, to assess while pt is awake as ordered. Pt refused to be woken up for [address], will continue to monitor.
--- NOTE | 2017-10-30 07:00 | NUR ---
End of Shift Pt is a 32 year old male admitted for Opiate dependence, placed on 5 day Subutex taper. Pt reported use of Heroin IV 1.5g -3g/daily, [place] 5/325 and Suboxone use 1 time on 10/25/2017. PMH: SI with attempt 12/2015, facial reconstruction, tongue sx, trach/GI and Hep C. NKA, regular diet, fall precautions and full code. During shift, pt reported feeling mildly anxious, reported mild muscle aches, skin flushed scheduled taper medications administered effective in management of s/s of withdrawal as reported per pt, COWS 4. Benadryl 50mg PRN administered for sleep. Pt slept for 6hours, intake of 500 ml PO, voids x1 and stool x0. Safety measures in place, call light within reach, side rails up x2, bed locked and in low position, endorsed to day shift nurse.
--- NOTE | 2017-10-30 07:30 | NUR ---
START OF SHIFT Pt 32 y/o male admitted for opiate dependence. Pt received in room on bed awake watching television. Pt alert and oriented to name, place, and time. Perrla. Skin warm and slightly moist to touch. Respirations even and unlabored. It was reported that pt slept for 6 hours last night. Bed on lowest position with side rails x2 up for safety. Call light within reach. No distress noted at this time.
[2017-10-30] MEDS: ESCITALOPRAM OXALATE 10 MG TABLET PO SCH (08:32)
[2017-10-30] MEDS: DICYCLOMINE HCL 20 MG TABLET PO SCH ×3 (08:32→21:34)
[2017-10-30] MEDS: BACLOFEN 10 MG TABLET PO SCH ×3 (08:32→21:34)
[2017-10-30] MEDS: CLONIDINE HCL 0.1 MG TABLET PO SCH ×3 (08:32→21:34)
[2017-10-30 08:37] VITALS: BP 131/68
[2017-10-30] MEDS ORDERED: BUPRENORPHINE HCL 2 MG TAB.SUBL SL SCH ×2 (09:00)
--- NOTE | 2017-10-30 09:43 | NUR ---
PRN Pt states has body aches 04/04. Robaxin po prn per MD order given and tolerated well. Addendum: 10/30/17 at 1152 by JOSEFINA GUTIERREZ RN incorrect pt
--- NOTE | 2017-10-30 10:43 | NUR ---
CAROLYN JUSTICE Pt observed on bed with eyes closed resting, but easily arousable to name. No c/o body aches at this time. Addendum: 10/30/17 at 1152 by JOSEFINA GUTIERREZ RN incorrect pt
[2017-10-30 12:00] VITALS: BP 130/79
[2017-10-30 16:00] VITALS: BP 130/78
--- NOTE | 2017-10-30 18:43 | NUR ---
END OF SHIFT Pt 32 y/o male admitted for opiate dependence. Pt alert and oriented to name, place, and time. Perrla. Skin warm and slightly moist touch. Respirations even and unlabored. Pt with bilateral hand tremors noted slightly. Pt observed mostly isolative to room throughout the day. Pt attended group activity. Pt is scheduled to be discharged tomorrow. Pt was seen by MD today. Pt medication compliant and tolerated well. No ASE noted. Bed on lowest position with side rails x2 up for safety. Call light within reach. No distress noted at this time.
--- NOTE | 2017-10-30 19:00 | NUR ---
Start of Shift Patient Received. Patient is in his room awake, alert and verbally responsive. Breathing even and non labored. Patient is a 32 year old male admitted on 10/25/17 for Opiate Dependence under the care of Dr. Juarez and has completed a 5 day Subutex taper. Patient verbalizes no known allergies, wishes to be full code, following a regular diet, placed on fall and seizure precautions, and skin noted intact. Past medical history noted as facial reconstruction due to Suicidal attempt in 2016 and Hep C (+). Per endorsement, patient is set for discharge tomorrow 10/31/17 and patient is discharging home. No PRN Medications administered. Last noted COWS 2. All needs attended to promptly. Will continue plan of care as ordered.
[2017-10-30 20:30] VITALS: BP 156/88
[2017-10-30] MEDS: diphenhydrAMINE 50 MG CAPSULE PO PRN (21:34)
--- NOTE | 2017-10-30 21:41 | NUR ---
PRN Medication Administration Patient is verbalizing inability of falling asleep. PRN Benadryl administered as per order. Will continue to monitor.
[2017-10-30] MEDS ORDERED: CLON0.1T14 PO (22:06)
[2017-10-30] MEDS ORDERED: ESCI10TA PO (22:06)
[2017-10-30] MEDS ORDERED: HYDR-3895 PO (22:06)
[2017-10-30] MEDS ORDERED: METH-406 PO (22:06)
[2017-10-30] MEDS ORDERED: IBUP-1955 PO (22:06)
[2017-10-30] MEDS ORDERED: DICY20TA28 PO (22:06)
[2017-10-30] MEDS ORDERED: DIPH50CA37 PO (22:06)
--- NOTE | 2017-10-30 22:45 | NUR ---
PRN Medication Reassessment Patient is noted in bed sleeping. Breathing even and non labored. Patient was given PRN Benadryl for inability of falling asleep with medication noted to be effective. No restlessness or discomfort noted. Will continue to monitor.
--- NOTE | 2017-10-31 00:12 | NUR ---
Vitals Refused Patient is noted in bed sleeping. Breathing even and non labored. Patient refused to have vitals rendered. Will continue to monitor. Addendum: 10/31/17 at 0013 by ANAHI RYDER LVN Amended: Links added.
--- NOTE | 2017-10-31 04:00 | NUR ---
Vitals Refused Patient is noted in bed sleeping. Breathing even and non labored. Patient refused to have vitals rendered. Will continue to monitor. Addendum: 10/31/17 at 0546 by ANAHI RYDER LVN Amended: Links added.
--- NOTE | 2017-10-31 07:20 | NUR ---
End of Shift Patient is in his room sleeping. Breathing even and non labored. Patient is a 28 year old male admitted for Benzo and Opiate Dependence and continues on a 4 day Valium and 4 day Subutex taper. No PRN Medications administered. Last noted COWS 5 and CIWA 5. All needs attended to promptly. Will endorse to continue plan of care as ordered. Addendum: 10/31/17 at 0731 by ANAHI RYEDR LVN entered in error
--- NOTE | 2017-10-31 07:32 | NUR ---
End of Shift Patient is in his room sleeping. Breathing even and non labored. Patient is a 32 year old male admitted for Opiate Dependence and has completed a 5 day Subutex taper. Patient received PRN Benadryl with medication noted to be effective. Last noted COWS 2. All needs attended to promptly. Will endorse to continue plan of care as ordered.
--- NOTE | 2017-10-31 07:35 | NUR ---
START OF SHIFT Received report from cage shift manager nurse. 32 year old male patient admitted on 10/25/17 for opiate withdrawals. Pt has completed 5 day Subutex taper and is medically cleared for discharge. Pt does not present with acute s/s of withdrawals over night, most recent COWS is 2. PRN Benadryl administered and patient slept for 6 hours. V/S remain stable Pt has adequate caloric intake, denies n/v/d. All needs met at this time, will continue to monitor.
[2017-10-31 08:29] VITALS: BP 130/78
[2017-10-31] MEDS: DICYCLOMINE HCL 20 MG TABLET PO SCH (08:47)
[2017-10-31 08:48] VITALS: BP 130/78
[2017-10-31] MEDS: CLONIDINE HCL 0.1 MG TABLET PO SCH (08:48)
[2017-10-31] MEDS: ESCITALOPRAM OXALATE 10 MG TABLET PO SCH (08:48)
[2017-10-31] MEDS: BACLOFEN 10 MG TABLET PO SCH (08:48)
--- NOTE | 2017-10-31 10:48 | NUR ---
END OF SHIFT Pt is A/O x4. V/S remain WNL. Pt denies SI/HI or hallucinations. Pt shows no s/s of acute withdrawal at this time, and is stable. has medically cleared pt for d/c. Education on Hepatitis C, smoking cessation and medication side effects provided. Pt verbalizes understanding. All pt belongings are in belonging bag, including prescriptions, pt did not have any home medications. Refuses PNU vaccination. Pt is being accompanied by TEACHING [employer] at this time to be transported to rehab. All needs met.
== END 2017-10-31 09:40 | disposition home or self-care (01) | DRG 895 ==
LOC: SRC 19:57
PROVIDERS: ADMIT Internal Medicine; ATTEND Internal Medicine
PROC: HZ2ZZZZ Detoxification Services for Substance Abuse Treatment (ICD-10-PCS; principal; 2017-10-25)
PROC: HZ31ZZZ Individual Counseling for Substance Abuse Treatment, Behavioral (ICD-10-PCS; 2017-10-26)
PROC: HZ41ZZZ Group Counseling for Substance Abuse Treatment, Behavioral (ICD-10-PCS; 2017-10-28)
DX: F11.23 Opioid dependence with withdrawal (principal); N17.9 Acute kidney failure, unspecified; F33.2 Major depressive disorder, recurrent severe without psychotic features; F17.211 Nicotine dependence, cigarettes, in remission; Z91.5 Personal history of self-harm; Z83.3 Family history of diabetes mellitus; Z81.1 Family history of alcohol abuse and dependence; Z81.3 Family history of other psychoactive substance abuse and dependence; F43.10 Post-traumatic stress disorder, unspecified; F12.20 Cannabis dependence, uncomplicated; B18.2 Chronic viral hepatitis C; R73.9 Hyperglycemia, unspecified; N05.8 Unspecified nephritic syndrome with other morphologic changes
CPT/HCPCS: 36415; 70030-TC; 80307; 80349; 80361; 83735; 85025; 86580; 86592; 86705; 86803; 87340; 87806; G0480; Q0162; Q0163

== ENCOUNTER 2017-12-06 14:19 | Inpatient (IN) | payer BC, OTHER ==
[~2017-12-06] VITALS: Ht 180.3 cm; Wt 81.6 kg
[~2017-12-06 14:19] MED LIST: CLON0.1T14 PO; DICY20TA28 PO; DIPH50CA37 PO; ESCI10TA PO; HYDR-3895 PO; IBUP-1955 PO; METH-406 PO
[2017-12-06] MEDS ORDERED: MIRALAX 17 GM POWD.PACK PO PRN (15:00)
[2017-12-06] MEDS ORDERED: LORAZEPAM 2 MG/1 ML VIAL IM PRN (15:00)
[2017-12-06] MEDS ORDERED: MAGNESIUM HYDROXIDE 30 ML LIQUID UDC PO PRN (15:00)
[2017-12-06] MEDS ORDERED: METHOCARBAMOL 750 MG TABLET PO PRN (15:00)
[2017-12-06] MEDS ORDERED: BUPRENORPHINE HCL 2 MG TAB.SUBL SL PRN (15:00)
[2017-12-06] MEDS ORDERED: IBUPROFEN 600 MG TABLET PO PRN (15:00)
[2017-12-06] MEDS ORDERED: LOPERAMIDE HCL 2 MG CAPSULE PO PRN ×2 (15:00)
[2017-12-06] MEDS ORDERED: ONDANSETRON ODT 4 MG TAB.RAPDIS SL PRN (15:00)
[2017-12-06] MEDS ORDERED: ONDANSETRON 4 MG/2 ML VIAL IM PRN (15:00)
[2017-12-06] MEDS ORDERED: MAG HYDROX/AL HYDROX/SIMETH 30 ML LIQUID UDC PO PRN (15:00)
[2017-12-06] MEDS ORDERED: DICYCLOMINE HCL 20 MG TABLET PO PRN (15:00)
[2017-12-06] MEDS ORDERED: ACETAMINOPHEN 325 MG TABLET PO PRN (15:00)
[2017-12-06] MEDS ORDERED: LORAZEPAM 1 MG TABLET PO PRN (15:00)
[2017-12-06 15:17] LABS: BASOPHILS % (AUTO) 0.6 % (0.0-2.0); EOSINOPHILS # (AUTO) 0.1 K/uL (0.0-0.7); HEMATOCRIT 49.9 % (36.7-47.1); HEMOGLOBIN 16.1 g/dL (12.5-16.3); MEAN CORPUSCULAR HEMOGLOBIN 30.6 uug (23.8-33.4); MEAN CORPUSCULAR HGB CONC 32 g/dL (32.5-36.3); MEAN CORPUSCULAR VOLUME 94.9 fL (73.0-96.2); MONOCYTES # (AUTO) 0.6 K/uL (2.0-10.0); MONOCYTES % (AUTO) 6.9 % (0.0-11.0); NEUTROPHILS # (AUTO) 4.9 K/uL (1.8-8.9); NEUTROPHILS % (AUTO) 56.5 % (38.5-71.5); PLATELET COUNT (AUTO) 280 K/uL (152-348); RED BLOOD CELL COUNT(AUTO) 5.26 MIL/uL (4.06-5.63); WHITE BLOOD COUNT (AUTO) 8.6 K/uL (3.6-10.2)
[2017-12-06 15:29] LABS: *AMPHETAMINE, URINE NEGATIVE (NEGATIVE); *BARBITURATE, URINE NEGATIVE (NEGATIVE); *CANNABINOID, URINE POSITIVE (NEGATIVE); *COCCAINE, URINE NEGATIVE (NEGATIVE); *OPIATE, URINE POSITIVE (NEGATIVE); *PHENCYCLIDINE SCREEN,URINE NEGATIVE (NEGATIVE)
[2017-12-06 15:30] LABS: ALANINE AMINOTRANSFERASE 60 U/L (16-63); ALKALINE PHOSPHATASE 126 U/L (50-136); ASPARTATE AMINOTRANSFERASE 46 U/L (15-37); BILIRUBIN,TOTAL 0.6 mg/dL (0.2-1.0); CARBON DIOXIDE 31 mmol/L (21-32); CHLORIDE 102 mmol/L (98-107); CREATININE 1.5 mg/dL (0.6-1.3); GLUCOSE 100 mg/dL (74-106); MAGNESIUM 2.3 mg/dL (1.8-2.4); POTASSIUM 3.3 mmol/L (3.5-5.1); UREA NITROGEN, BLOOD 20 mg/dL (7-18)
[2017-12-06 15:34] LABS: ETHANOL < 3 MG/DL (0-0)
[2017-12-06] MEDS: BUPRENORPHINE HCL 2 MG TAB.SUBL SL SCH ×2 (16:29→20:20)
[2017-12-06] MEDS ORDERED: POTASSIUM CHLORIDE 20 MEQ TAB.PRT.SR PO ONE (18:00)
[2017-12-06] MEDS: LORAZEPAM 1 MG TABLET PO PRN ×2 (19:02→20:47)
[2017-12-06 20:11] VITALS: BP 137/93
[2017-12-06] MEDS: GABAPENTIN 300 MG CAPSULE PO SCH (20:20)
[2017-12-06] MEDS: CLONIDINE HCL 0.1 MG TABLET PO PRN (20:21)
[2017-12-06] MEDS ORDERED: OLANZAPINE ZYDIS 5 MG TAB.RAPDIS PO SCH (21:15)
[2017-12-06] MEDS ORDERED: OLANZAPINE 5 MG TABLET ONE (21:37)
[2017-12-07 00:19] VITALS: BP 138/84
[2017-12-07 04:17] VITALS: BP 133/82
[2017-12-07 08:00] VITALS: BP 122/73
[2017-12-07] MEDS: GABAPENTIN 300 MG CAPSULE PO SCH ×2 (08:58→21:00)
[2017-12-07] MEDS: BUPRENORPHINE HCL 2 MG TAB.SUBL SL SCH ×3 (08:58→21:00)
[2017-12-07] MEDS: LORAZEPAM 1 MG TABLET PO PRN (08:58)
[2017-12-07] MEDS ORDERED: TUBERCULIN,PURIF.PROT.DERIV. 5 TU/0.1 ML TEST ID ONE (09:00)
[2017-12-07] MEDS: CLONIDINE HCL 0.1 MG TABLET PO PRN (09:46)
[2017-12-07 12:00] VITALS: BP 133/85
[2017-12-07 13:06] LABS: HEPATITIS B SURFACE AG Negative (Negative)
[2017-12-07 16:00] VITALS: BP 118/80
[2017-12-07] MEDS ORDERED: BUPRENORPHINE HCL 2 MG TAB.SUBL SL SCH (17:45)
[2017-12-07] MEDS ORDERED: KETOROLAC TROMETHAMINE 30 MG INJ IM PRN (17:45)
[2017-12-07] MEDS ORDERED: KETOROLAC TROMETHAMINE 30 MG INJ IM ONE (17:45)
[2017-12-07] MEDS ORDERED: LORAZEPAM 1 MG TABLET PO SCH (17:45)
[2017-12-07 20:00] VITALS: BP 97/57
[2017-12-08] VITALS: BP 110/58
[2017-12-08] MEDS: OLANZAPINE ZYDIS 5 MG TAB.RAPDIS PO PRN ×3 (01:59→23:08)
[2017-12-08 06:48] LABS: CREATININE 1.8 mg/dL (0.6-1.3); MAGNESIUM 2.5 mg/dL (1.8-2.4); POTASSIUM 4.3 mmol/L (3.5-5.1)
[2017-12-08 08:09] VITALS: BP 111/58
[2017-12-08] MEDS: GABAPENTIN 300 MG CAPSULE PO SCH ×3 (08:46→21:13)
[2017-12-08] MEDS ORDERED: BUPRENORPHINE HCL 2 MG TAB.SUBL SL SCH (09:00)
[2017-12-08 12:25] VITALS: BP 129/91
[2017-12-08] MEDS: HYDROXYZINE PAMOATE 25 MG CAPSULE PO PRN (12:29)
[2017-12-08] MEDS: CLONIDINE HCL 0.1 MG TABLET PO PRN (12:30)
[2017-12-08] MEDS: BUPRENORPHINE HCL 2 MG TAB.SUBL SL SCH ×2 (14:36→21:14)
[2017-12-08 16:45] VITALS: BP 137/74
[2017-12-08 20:00] VITALS: BP 152/88
[2017-12-08] MEDS: ESCITALOPRAM OXALATE 10 MG TABLET PO SCH (21:13)
[2017-12-08] MEDS: CLONIDINE HCL 0.1 MG TABLET PO SCH (21:14)
[2017-12-08] MEDS ORDERED: LORAZEPAM 1 MG TABLET PO PRN ×2 (21:30)
[2017-12-08] MEDS: diphenhydrAMINE 50 MG CAPSULE PO PRN (23:08)
[2017-12-09] VITALS: BP 142/87
[2017-12-09 08:00] VITALS: BP 127/87
[2017-12-09] MEDS: CLONIDINE HCL 0.1 MG TABLET PO SCH ×2 (08:04→21:40)
[2017-12-09] MEDS: GABAPENTIN 300 MG CAPSULE PO SCH ×3 (08:04→21:40)
[2017-12-09] MEDS: BUPRENORPHINE HCL 2 MG TAB.SUBL SL SCH ×3 (08:05→21:41)
[2017-12-09] MEDS: OLANZAPINE ZYDIS 5 MG TAB.RAPDIS PO PRN ×2 (08:08→13:29)
[2017-12-09 12:00] VITALS: BP 130/88
[2017-12-09 14:25] LABS: *BILIRUBIN,URIN NEGATIVE (NEGATIVE); *BLOOD, URINE NEGATIVE (NEGATIVE); *CLARITY,URINE CLOUDY (CLEAR); *COLOR,URINE YELLOW (YELLOW); *KETONES,URINE NEGATIVE (NEGATIVE); *PROTEIN,URINE 1+ (NEGATIVE); LEUKOCYTE ESTERASE ,URINE NEGATIVE (NEGATIVE); NITRITE, URINE NEGATIVE (NEGATIVE); PH,URINE 7.5 (5.0-8.0); UGLUCOSE NEGATIVE (NEGATIVE)
[2017-12-09 14:40] LABS: *CREATININE,URINE 299.3 mg/dL (30-125)
[2017-12-09 14:54] LABS: URINE AMORPHOUS PHOSPHATES MANY /HPF; WBC,URINE NONE SEEN /HPF (0-3)
[2017-12-09] MEDS: HYDROXYZINE PAMOATE 25 MG CAPSULE PO PRN (15:33)
[2017-12-09 16:00] VITALS: BP 142/75
[2017-12-09] MEDS: ESCITALOPRAM OXALATE 10 MG TABLET PO SCH (21:39)
[2017-12-09] MEDS: diphenhydrAMINE 50 MG CAPSULE PO PRN (21:40)
[2017-12-09 22:00] VITALS: BP 135/86
[2017-12-10 08:08] VITALS: BP 115/88
[2017-12-10] MEDS: GABAPENTIN 300 MG CAPSULE PO SCH ×3 (08:41→21:14)
[2017-12-10] MEDS: CLONIDINE HCL 0.1 MG TABLET PO SCH ×2 (08:42→21:14)
[2017-12-10] MEDS ORDERED: BUPRENORPHINE HCL 2 MG TAB.SUBL SL SCH (09:00)
[2017-12-10] MEDS: HYDROXYZINE PAMOATE 25 MG CAPSULE PO PRN ×2 (11:02→21:16)
[2017-12-10 12:00] VITALS: BP 123/70
[2017-12-10 16:00] VITALS: BP 136/93
[2017-12-10] MEDS ORDERED: HYDR-3895 PO (17:22)
[2017-12-10] MEDS ORDERED: CLON0.1T14 PO (17:22)
[2017-12-10] MEDS ORDERED: DICY20TA28 PO (17:22)
[2017-12-10] MEDS ORDERED: METH-406 PO (17:22)
[2017-12-10] MEDS ORDERED: DIPH50CA37 PO (17:22)
[2017-12-10] MEDS ORDERED: GABA-534 PO (17:22)
[2017-12-10] MEDS ORDERED: ACET325T53 PO (17:23)
[2017-12-10 20:00] VITALS: BP 139/84
[2017-12-10] MEDS: ESCITALOPRAM OXALATE 10 MG TABLET PO SCH (21:14)
[2017-12-10] MEDS: diphenhydrAMINE 50 MG CAPSULE PO PRN (21:17)
[2017-12-11 03:19] VITALS: BP 142/77
[2017-12-11] MEDS: CLONIDINE HCL 0.1 MG TABLET PO PRN (03:19)
[2017-12-11 08:00] VITALS: BP 124/70
[2017-12-11] MEDS: CLONIDINE HCL 0.1 MG TABLET PO SCH (08:34)
[2017-12-11] MEDS: GABAPENTIN 300 MG CAPSULE PO SCH ×2 (08:34→14:15)
[2017-12-11] MEDS: HYDROXYZINE PAMOATE 25 MG CAPSULE PO PRN (08:34)
[2017-12-11 12:00] VITALS: BP 124/70
== END 2017-12-11 15:25 | disposition other institution (70) | DRG 895 ==
LOC: SRC 14:19
PROVIDERS: ADMIT Internal Medicine; ATTEND Internal Medicine
PROC: HZ2ZZZZ Detoxification Services for Substance Abuse Treatment (ICD-10-PCS; principal; 2017-12-06)
PROC: HZ41ZZZ Group Counseling for Substance Abuse Treatment, Behavioral (ICD-10-PCS; 2017-12-08)
PROC: HZ31ZZZ Individual Counseling for Substance Abuse Treatment, Behavioral (ICD-10-PCS; 2017-12-09)
DX: F11.23 Opioid dependence with withdrawal (principal); N17.9 Acute kidney failure, unspecified; F33.2 Major depressive disorder, recurrent severe without psychotic features; I15.9 Secondary hypertension, unspecified; F13.10 Sedative, hypnotic or anxiolytic abuse, uncomplicated; B19.20 Unspecified viral hepatitis C without hepatic coma; E87.6 Hypokalemia; Z91.89 Other specified personal risk factors, not elsewhere classified; Z87.828 Personal history of other (healed) physical injury and trauma; Z91.5 Personal history of self-harm; F43.10 Post-traumatic stress disorder, unspecified; Z81.1 Family history of alcohol abuse and dependence; Z83.3 Family history of diabetes mellitus; F17.211 Nicotine dependence, cigarettes, in remission; F12.20 Cannabis dependence, uncomplicated; Z79.899 Other long term (current) drug therapy; G89.29 Other chronic pain
CPT/HCPCS: 36415; 70030-TC; 76770; 80307; 80346; 80349; 80361; 82043; 82570; 83735; 84300; 85025; 86580; 86592; 86705; 86803; 87340; 87806; A4663; G0480; J1885; Q0162; Q0163